=== PATIENT | male | born 1980 | race Caucasian/White ===

== ENCOUNTER 2017-11-24 04:32 | Emergency (ER) | payer OTHER ==
--- NOTE | 2017-11-24 04:35 | PDOC ---
History of Present Illness - General Stated Complaint: PAIN,INJURY Time Seen by Provider: 11/24/17 04:35 History Source: Patient, EMS Exam Limitations: No Limitations - History of Present Illness Initial Comments: 11/24/17 04:35 Pt brought in by EMS after he fell into a trap door. Per pt he was drinking etoh tonight, denies illicit drug use. Pt currently complains of bilateral knee pain, foot pain, left elbow pain. Pt denies head injury, LOC, headache, chest pain, shortness of breath, abdominal pain, nausea, vomiting, fever. Pt states he "does not know" if he has any medical problems. Allergies - NKDA. Past History - Past Medical History Allergies/Adverse Reactions: Allergies Allergy/AdvReac Type Severity Reaction Status Date / Time No Known Allergies Allergy Verified 11/24/17 05:09 Review of Systems - Review of Systems Able to Perform ROS?: Yes Comments:: 11/24/17 04:49 General: denies fever, chills, night sweats, generalized weakness. HEENT: denies sore throat, rhinorrhea, ear pain. Heart: denies chest pain, palpitations, syncope, lower extremity swelling, diaphoresis. Respiratory: denies shortness of breath, cough, sputum production, hematemesis. Abdomen: denies abdominal pain, nausea, vomiting, diarrhea, constipation, blood in stool. : denies dysuria, increased urinary frequency, hematuria, urinary incontinence , flank pain. Back: denies back pain, flank pain. Musculoskeletal: admit to left knee pain, right knee pain, left elbow pain, right foot pain, left foot pain. denies hip pain. Neurological: denies headache, dizziness, numbness, tingling, weakness, LOC. Skin: denies rash, laceration, abrasion. *Physical Exam - Physical Exam Comments: 11/24/17 04:51 Appearance: laying in bed. HEENT: head is normocephalic, atraumatic. EOMI. PERRLA. Neck: supple. Full ROM. Heart: regular rhythm. no murmurs, rubs or gallops. No pericardial friction rub. Lungs: clear to auscultation bilaterally. no crackles, rhonchi or wheezing. no stridor. Abdomen: soft, nontender. normal bowel sounds. no rebound, guarding, masses. Extremities: tenderness to palpation of bilateral foot and knee. Peripheral pulses intact and equal. No lower extremity edema. Neurological: Alert. Oriented x3. CN 2-12 grossly intact. Moves all four extremities. Skin: abrasion to left elbow. abrasion to LLQ. Medical Decision Making - Medical Decision Making 11/24/17 04:55 37 year old male with unknown PMH BIBA after falling into a trap door. He complains of bilateral knee pain, bilateral foot pain and left elbow pain. Denies LOC or head injury. Pending XRs, CT head, CT neck. 11/24/17 06:15 Pt reassessed, state he is feeling better. 11/24/17 06:34 CT head and neck: negative. Pending XRs. 11/24/17 07:17 I discussed the case with Dr. Sigala, who will assume care for the patient. *DC/Admit/Observation/Transfer Diagnosis at time of Disposition: Fall - Discharge Dispostion Condition at time of disposition: Stable - Referrals Referrals: Jennifer Armenta [Primary Care Provider] - - Patient Instructions Additional Instructions: You were seen today for fall. Your head cat-scan was normal. Your neck cat-scan was normal. - Post Discharge Activity
--- NOTE | 2017-11-24 04:47 | PDOC ---
Attending Attestation - HPI HPI: 11/24/17 05:56 The patient is a 37 year old male, with no significant past medical history, who presents to the emergency department s/p fall with, pain to the bilateral lower extremities and left elbow. As per patient, he was leaving a bar when he fell into a trap door outside of the bar. The patient is a poor historian due to alcohol intoxication. He denies hitting his head or any loss of consciousness. He denies any recent fevers, chills, headache or dizziness. He denies any recent nausea, vomit, diarrhea or constipation. He denies any recent chest pain or shortness of breath. He denies any recent dysuria, frequency, urgency or hematuria. Allergies: NKA - Physicial Exam PE: 11/24/17 05:56 GENERAL: Awake, alert, and fully oriented, in no acute distress HEAD: No signs of trauma EYES: PERRLA, EOMI, sclera anicteric, conjunctiva clear ENT: Auricles normal inspection, hearing grossly normal, nares patent, oropharynx clear without exudates. Moist mucosa NECK: Normal ROM, supple, no lymphadenopathy, JVD, or masses LUNGS: Breath sounds equal, clear to auscultation bilaterally. No wheezes, and no crackles HEART: Regular rate and rhythm, normal S1 and S2, no murmurs, rubs or gallops ABDOMEN: Soft, nontender, normoactive bowel sounds. No guarding, no rebound. No masses EXTREMITIES: Bilateral knee and ankle pain worse on the right lower extremity. No gross deformity. No edema. No clubbing or cyanosis. NEUROLOGICAL: Cranial nerves II through XII grossly intact. Normal speech, normal gait SKIN: Warm, Dry, normal turgor, no rashes or lesions noted. <Charley Barclay - Last Filed: 11/24/17 05:56> - Resident Resident Name: Deb Bentley - ED Attending Attestation I have performed the following: I have examined & evaluated the patient, The case was reviewed & discussed with the resident, I agree w/resident's findings & plan - HPI HPI: 11/24/17 04:45 Pt comes after he fell down the storage/basement steps of a bar which he was exiting. - Medical Decision Making 11/24/17 19:37 Pt is awaiting xrays and reeval, He will be signed out to the day team. <Vani Chand - Last Filed: 11/24/17 19:39> Attestations - Attestations 11/24/17 05:58 Documentation prepared by Charley Barclay, acting as emergency medical technician basic for Vani Chand MD. <Charley Barclay - Last Filed: 11/24/17 05:56>
[2017-11-24 05:09] VITALS: TEMP 98.1; BMI 36.9
--- NOTE | 2017-11-24 08:04 | PDOC ---
*Physical Exam - Vital Signs Last Vital Signs Temp Pulse Resp BP Pulse Ox 98.1 F 72 18 144/94 99 11/24/17 04:35 11/24/17 12:00 11/24/17 12:00 11/24/17 12:00 11/24/17 12:00 <Barbi Waite - Last Filed: 11/24/17 14:07> - Vital Signs Last Vital Signs Temp Pulse Resp BP Pulse Ox 98.1 F 94 H 19 159/98 97 11/24/17 04:35 11/24/17 04:35 11/24/17 04:35 11/24/17 04:35 11/24/17 04:35 - Physical Exam Comments: 11/24/17 08:04 GENERAL: Awake, alert, and fully oriented, in no acute distress HEAD: No signs of trauma, normocephalic, atraumatic EYES: PERRLA, EOMI, sclera anicteric, conjunctiva clear ENT: Hearing grossly normal, nares patent, oropharynx clear without exudates. Moist mucosa NECK: Normal ROM, supple, no lymphadenopathy, JVD, or masses LUNGS: No distress, speaks full sentences, clear to auscultation bilaterally HEART: Regular rate and rhythm, normal S1 and S2, no murmurs, rubs or gallops, peripheral pulses normal and equal bilaterally. ABDOMEN: + LLQ abrasion and ttp. NBS. No guarding, no rebound. No masses. Neg CVA ttp. EXTREMITIES : Normal inspection, Normal range of motion, no edema. No clubbing or cyanosis. NEUROLOGICAL: Cranial nerves II through XII grossly intact. Normal speech, normal gait, no focal sensorimotor deficits MSK:BL elbow, BL knee, BL ankle joint with normal ROM, but diffuse bony ttp, with absent effusion, abrasion, or laceration. Absent crepitus. SKIN: Warm, Dry, normal turgor, no rashes or lesions noted <Aaron Sigala - Last Filed: 11/24/17 15:18> ED Treatment Course - ADDITIONAL ORDERS Additional order review: Laboratory Results 11/24/17 06:13 Alcohol, Quantitative 151.2 H* - Medications Given in the ED: ED Medications Discontinued Medications Generic Name Dose Route Start Last Admin Trade Name Freq PRN Reason Stop Dose Admin Ibuprofen 400 mg 11/24/17 09:56 11/24/17 10:01 Motrin - PO 11/24/17 09:57 400 mg ONCE ONE Administration <Barbi Waite - Last Filed: 11/24/17 14:07> - ADDITIONAL ORDERS Additional order review: Laboratory Results 11/24/17 06:13 Alcohol, Quantitative 151.2 H* <Aaron Sigala - Last Filed: 11/24/17 15:18> Medical Decision Making - Medical Decision Making 11/24/17 07:59 37 yo M with h/o who p/w multiple arthalgias following mechanical fall. VSS, GCS 15, A&OX3. Patient reports walking down street at 0400 AM today and fell through an open corridor in the street. Reports landing on his R side. Now with R hip, knee, ankle pain, and Left knee and elbow pain. No obvious bony deformity or laceration on PE. Normal ROM throughout, but limited d/t pain. Denies LOC, head/neck or back trauma, or open lacerations or bleeding. Patient was down on ground for seconds and able to ambulate following event. Was assisted up by bystander in hallway of "hole" that he fell through. Patient inebriated on initial encounter and now clinically sober. Patient seen by night time. ED Course noteable for unremarkable CTH and CT C-SPINE. Pending radiographic imaging of BL knee, BL foot, and L elbow. NKDA ED Course: 11/24/17 08:06 Blood A 11/24/17 10:01 Left elbow: Unremarkable Right and Left foot: Unremarkable Right and Left knee: Unremarkable Ibruprofen 400 mg. Called and spoke to CT reading room. Physician away from reading desk. Awaiting CTH and CSPINE read. 11/24/17 13:36 Placed 2nd call to reading room. Awaiting CTH and CSPINE result. CTH, and C-SPINE: Unremarkable Pt. stable for d/c with return precautions. Advised to f/u with PMD. Able to ambulate with crutches. <Aaron Sigala - Last Filed: 11/24/17 15:18> *DC/Admit/Observation/Transfer - Discharge Dispostion Decision to Admit order: No <Barbi Waite - Last Filed: 11/24/17 14:07> - Discharge Dispostion Decision to Admit order: No - Attestations Physician Attestion: 11/24/17 08:09 I attest to the information provided in this note. <JovonAaron - Last Filed: 11/24/17 15:18> Diagnosis at time of Disposition: Fall Qualifiers: Encounter type: initial encounter Qualified Code(s): W19.XXXA - Unspecified fall, initial encounter Joint pain Qualifiers: Joint pain location: knee Laterality: bilateral Qualified Code(s): M25.561 - Pain in right knee - Discharge Dispostion Disposition: HOME Condition at time of disposition: Stable - Referrals Referrals: Jennifer Armenta [Primary Care Provider] - Keshav Everett MD [Staff Physician] - - Patient Instructions Printed Discharge Instructions: DI for Arthralgia Additional Instructions: Please return to the emergency department with any new or worsening symptoms or concerns. Please follow up with your primary care physician within 72 hours.Please follow up with orthopedic surgery within one week. - Post Discharge Activity
[2017-11-24] MEDS ORDERED: IBUPROFEN 400 MG TABLET (FP) PO ONE ×2 (09:56→09:58)
[2017-11-24 15:45] VITALS: BP 141/88; PULSE 77
== END 2017-11-24 15:45 | disposition home or self-care (01) ==
LOC: JER 04:32
DX: S89.82XA Other specified injuries of left lower leg, initial encounter (principal); S89.81XA Other specified injuries of right lower leg, initial encounter; S99.821A Other specified injuries of right foot, initial encounter; S99.822A Other specified injuries of left foot, initial encounter; S59.802A Other specified injuries of left elbow, initial encounter; W17.89XA Other fall from one level to another, initial encounter; Y93.89 Activity, other specified; Y92.480 Sidewalk as the place of occurrence of the external cause; Y99.8 Other external cause status; Y90.6 Blood alcohol level of 120-199 mg/100 ml; F10.120 Alcohol abuse with intoxication, uncomplicated
CPT/HCPCS: 36415; 70450-TC; 72125-TC; 73070-TC-LT-FY; 73562-TC-LT-FY; 73562-TC-RT-FY; 73630-TC-LT; 73630-TC-RT-FY; 80307; 99282-25